=== PATIENT | female | born 1985 | race Caucasian/White ===

== ENCOUNTER 2023-05-09 19:40 | Emergency (ER) | payer BC, SELFPAY ==
[2023-05-09 19:54] VITALS: BP 136/90; PULSE 81; RESP 20; TEMP 36.9; O2SAT 99
--- NOTE | 2023-05-09 20:02 | ED.GENADULT ---
HPI - General Adult General Chief complaint: Shortness of Breath/Dyspnea Stated complaint: SOB Time Seen by Provider: 05/09/23 20:02 Source: patient Mode of arrival: ambulatory Limitations: no limitations History of Present Illness HPI narrative: 37-year-old female presents with complaint of cough, nasal congestion, fatigue, chills, body aches since yesterday. Afebrile. Well-appearing and smiling. Patient states ?maybe I am just coming down with cold ?. Patient was recently seen in the ER. Prescribed atenolol 2 days ago for elevated heart rate. Denies chest pain and palpitations. All systems reviewed and negative except as noted above. Related Data Home Medications Medication Instructions Recorded Confirmed atenolol 50 mg tablet 50 mg 05/09/23 methimazole 10 mg tablet 10 mg 05/09/23 Allergies Allergy/AdvReac Type Severity Reaction Status Date / Time No Known Allergies Allergy Verified 05/09/23 19:51 Review of Systems Review of Systems: CONSTITUTIONAL: Denies fever or sweats. Reports chills and fatigue. EYES: Denies visual changes, redness, or discharge. ENT: Reports rhinorrhea, congestion. Denies sore throat, or otalgia. CARDIOVASCULAR: Denies chest pain, palpitations, or edema. RESPIRATORY: Reports cough. Denies dyspnea. GASTROINTESTINAL: Denies abdominal pain, nausea, vomiting, or diarrhea. GENITOURINARY: Denies dysuria or hematuria. SKIN: Denies rash or itching. MUSCULOSKELETAL: Denies back pain, joint pain, or myalgia. NEUROLOGIC: Denies headache, numbness, or weakness. PSYCHIATRIC: Denies anxiety or depression. All other systems reviewed are negative, except as documented in HPI. PMFSH Comments At time of signature, agree with nursing past medical, surgical, social and family history. There is no relevant family history pertinent to the presenting complaint. Exam Narrative: GENERAL: This is a well-nourished, well-developed patient, in no apparent distress. HEAD: normocephalic, atraumatic. EYES: PERRL. Sclera clear/white. Vision is grossly intact. EARS: External ears normal, auditory canals clear and without drainage, TMs normal without perforation. Hearing grossly intact. NOSE: External nose normal with clear nasal drainage. No significant erythema or swelling to nares. THROAT: Mucous membranes moist, posterior pharynx clear. NECK: Neck supple, non-tender without lymphadenopathy, masses or thyromegaly. CARDIOVASCULAR: Regular rate and rhythm without murmurs, gallops, or rubs. RESPIRATORY: Clear to auscultation. Breath sounds equal bilaterally. No wheezes, rales, or rhonchi. SKIN: warm, Dry, intact with no suspicious lesions or rash, good texture and turgor. NEURO: awake, alert, and oriented to person, place and time. There were no obvious focal neurologic abnormalities. EXTREMITIES: No joint tenderness, effusion, or edema noted. Course Course Level of Care: Express Care Visit Vital Signs Vital signs: Vital Signs Temperature 36.9 C 05/09/23 19:54 Pulse Rate 81 05/09/23 19:54 Respiratory Rate 20 05/09/23 19:54 Blood Pressure 136/90 05/09/23 19:54 Pulse Oximetry 99 05/09/23 19:54 Oxygen Delivery Room Air 05/09/23 19:54 Temperature 36.9 C 05/09/23 19:54 Pulse Rate 81 05/09/23 19:54 Respiratory Rate 20 05/09/23 19:54 Blood Pressure 136/90 05/09/23 19:54 Pulse Oximetry 99 05/09/23 19:54 Oxygen Delivery Room Air 05/09/23 19:54 Reviewed Medical Decision Making MDM Narrative Medical decision making narrative: Patient came in today because she thinks she is getting a ?cold ?. She was recently seen in ER and thinks she may have contracted something from the ER. I recommended to her that is too early for COVID testing and that she take home test at 48 hours. Her exam was normal other than clear nasal drainage. She states she is unsure of what medications she can take [id number] for her symptoms with new prescribed atenolol. Pr
== END 2023-05-09 20:07 | disposition home or self-care (01) ==
PROVIDERS: Emergency Provider Nurse Practitioner Family
DX: J06.9 Acute upper respiratory infection, unspecified (principal); Z79.899 Other long term (current) drug therapy
CPT/HCPCS: 99203; G0463

== ENCOUNTER 2023-05-12 00:06 | Emergency (ER) | payer BC, SELFPAY ==
[2023-05-12 00:09] VITALS: BP 125/69; PULSE 86; RESP 16; TEMP 36.4; O2SAT 100
--- NOTE | 2023-05-12 02:36 | PC.NURSE ---
Patient called out for repeat vitals to triage area, no answer
--- NOTE | 2023-05-12 02:48 | PC.NURSE ---
Patient was again called to triage area for repeat vitals, no answer
== END 2023-05-12 03:20 | disposition left against medical advice (07) ==
LOC: ANHED 03:06
DX: R25.8 Other abnormal involuntary movements (principal)
CPT/HCPCS: 99199

== ENCOUNTER 2023-05-14 11:08 | Emergency (ER) | payer BC, SELFPAY ==
--- NOTE | 2023-05-14 11:37 | PC.NURSE ---
pt seen pacing in lobby and then seen getting into vehicle and leaving.
== END 2023-05-14 11:37 | disposition left against medical advice (07) ==
DX: Z53.21 Procedure and treatment not carried out due to patient leaving prior to being seen by health care provider (principal)
CPT/HCPCS: 99199

== ENCOUNTER 2024-08-26 10:46 | Outpatient (CLI) | payer BC, SELFPAY ==
--- NOTE | ~2024-08-26 | MM_ITS ---
EXAMINATION: MM screening andrea BI w anne HISTORY: Screening TECHNIQUE: Craniocaudal and mediolateral oblique 3-D tomosynthesis images were obtained and synthetic 2-D images were generated. CAD analysis was submitted and interpreted. COMPARISON: No prior studies for comparison. BREAST PARENCHYMAL COMPOSITION: Dense: The breasts are heterogeneously dense, which may obscure small masses FINDINGS: There is no evidence of suspicious mass, calcification, or architectural distortion to sugg est malignancy in either breast. There has been no suspicious interval change. IMPRESSION: 1. No mammographic evidence of malignancy. 2. Recommend routine screening mammography in one year. BI-RADS CATEGORY 1 - NEGATIVE Reviewed, dictated and finalized at location A.
--- OUTSIDE RECORDS SUMMARY | 2024-08-26 10:49 | XMS_ITS | Clinical Summary ---
Author Organization [facility] Address [address] [place] [address] Care Team Providers Care Energy Economist Name Role Phone Unavailable Primary Care Provider Unavailabl e Source Comments [facility],non-owned Affiliates and Associated Physician Practices is amultiple site organization consisting of ambulatory clinics and hospital sitesin [place], [place], [place] and [place]. This disclosure is being madepursuant to the Care Everywhere program and may not contain all information available regarding this patient. Last updated [email or web address] Allergies No known active allergies Medications * Be aware that medications may not be up to date on this document. Alwaysverify current medications with the patient. No known medications Social History Tobacco Use Types Packs/Day Years Used Date Smoking Tobacco: Never Smokeless Tobacco: Never Comments No Sex and Gender Information Value Date Recorded Sex Assigned at Not on file Legal Sex Female 1:25 AM CDT Gender Identity Not on file Sexual Orientation Not on file Last Filed Vital Signs Vital Sign Reading Time Taken Comments Blood Pressure 108/64 04/26/2020 11:32 AM SECRETARY OF POLICE Pulse 70 04/26/2020 11:32 AM SECR[employer]ARY [employer] Temperature 36.6 C (97.8 F) 04/26/2020 11:32 AM SECR[employer]ARY [employer] Respiratory Rate 16 04/26/2020 11:32 AM SECRETARY [employer] Oxygen Saturation 97% 04/26/2020 11:32 AM SECRETARY [employer] Inhaled Oxygen Concentration - - Weight 59 kg (130 lb) 04/26/2020 11:32 AM SECRETARY OF [employer] Height 160 cm (5' 3 ) 04/26/2020 11:32 AM SECR[employer]ARY [employer] Body Mass Index 23.03 04/26/2020 11:32 AM SECRETARY OF [employer] Plan of Treatment Health Maintenance Due Date Last Done Comments LIPID TESTING 1985 MAMMOGRAM 1985 PAP SMEAR 1983 HIV SCREENING 12/23/1998 HEPATITIS C SCREENING 12/19/2001 DTAP/TDAP/TD VACCINES (1 - Tdap) 12/23/2002 HEPATITIS B VACCINE (1 of 3 - 19+ 3-dose series) 12/23/2002 COVID-19 VACCINE (1 - 2023-2 5 season) 2024 DEPRESSION SCREENING 05/10/2024 INFLUENZA VACCINE (Season Ended) 2025 ZOSTER VACCINE (1 of 2) 12/23/2033 HIB VACCINE Aged Out No longer eligi ble based on patient's age to complete this topic HPV VACCINE Aged Out No longer eligi ble based on patient's age to complete this topic MENINGOCOCCAL (Group B) VACC INE SHARED DECISION-MAKING Aged Out No longer eligibl e based on patient's age to complete this topic MENINGOCOCCAL GROUPS A/C/Y/W VACCINE Aged Out No longer eligible b ased on patient's age to complete this topic PNEUMOCOCCAL VACCINE Aged Out No long er eligible based on patient's age to complete this topic Insurance [facility]
--- OUTSIDE RECORDS SUMMARY | 2024-08-26 10:49 | XMS_ITS | Clinical Summary ---
Author Organization [facility] Address [address] [place] [address] Care Team Providers Care Online Marketing Specialist Name Role Phone Adalberto Lund MD Primary Care Provider [phone] Allergies No known active allergies Medications atenolol (TENORMIN) 50 MG tablet Take 1 tablet (50 mg total) by mouth daily. Active methIMAzole (TAPAZOLE) 10 MG tablet Take 1 tablet (10 mg total) by mouth. Active Immunizations Immunization Administration Dates Next Due Influenza (Generic) 03/06/2021 Influenza Adult (Generic) 02/22/2018 Social History Tobacco Use Types Packs/Day Years Used Date Smoking Tobacco: Never Smokeless Tobacco: Never Tobacco Cessation:Counseling Given: Not Answered Comments No Sex and Gender Information Value Date Recorded Sex Assigned at Not on file Legal Sex Female 8:13 PM CDT Gender Identity Not on file Sexual Orientation Not on file Last Filed Vital Signs Vital Sign Reading Time Taken Comments Blood Pressure 128/59 05/21/2023 11:15 PM CAN DRAGGER Pulse 99 05/21/2023 11:15 PM CAN DRAGGER Temperature 36.4 C (97.6 F) 05/21/2023 8:14 PM CAN DRAGGER Respiratory Rate 15 05/21/2023 11:15 PM CAN DRAGGER Oxygen Saturation 99% 05/21/2023 11:15 PM CAN DRAGGER Inhaled Oxygen Concentration - - Weight 56.7 kg (125 lb) 05/21/2023 8:11 PM CAN DRAGGER Height 160 cm (5' 3 ) 05/21/2023 8:11 PM CAN DRAGGER Body Mass Index 22.14 05/21/2023 8:11 PM CAN DRAGGER Plan of Treatment Health Maintenance Due Date Last Done Comments Cervical Cancer Screening Pa p Smear (Age 30 to 64) Every 3 Years 1983 Annual Physical 12/23/1986 Hepatitis C 12/23/2001 DTaP, Tdap and Td Vaccines ( 1 - Tdap) 12/23/2002 Hepatitis B Vaccines (1 of 3 - 19+ 3-dose series) 12/23/2002 Cervical Cancer Screening Pa p with HPV Testing (Age 30 to 64) Every 5 Years 12/23/2013 Cervical Cancer Screening wi th HPV 12/23/2013 Mammogram Screening 2023 COVID-19 Vaccine (2023-2 5 season) 2024 03/13/2021, 08/03/2020, 07/11/2020 HPV Vaccines Aged Out No longer eligi ble based on patient's age to complete this topic Meningococcal B Vaccine Aged Out No l onger eligible based on patient's age to complete this topic Meningococcal Vaccine Aged Out No luisito frandy eligible based on patient's age to complete this topic Pneumococcal Vaccine: Pediatrics (0 to 5 Years) and At-Risk Patients (6 to 49 Years) Aged Out No longer eligible b ased on patient's age to complete this topic RSV Immunizations Under 20 Months Aged Out No longer eligible b ased on patient's age to complete this topic Insurance [facility] Care Teams Online Marketing Specialist Relationship Specialty Start Date End Date Adalberto Lund MD [address] [place] [address] [id number] [place] [address] PCP - General FAMILY PRACTICE 05/12/23
--- OUTSIDE RECORDS SUMMARY | 2024-08-26 10:49 | XMS_ITS | Continuity of Care Document ---
Author Organization [facility]. If a dditional information is needed, contact Health Information Management at [phone] [place] [address] Phone Care Team Providers Care Staff Technologist Name Role Phone Unavailable Unavailable Unavailable Unavailable Unavailable Unavailable Problems Exposure to COVID-19 virus Onset:11-May-2023 Comments:Onset Date: 20230506 Essential (primary) hypertension(I10) Onset:11-May-2023 Comments:Onset Date: [id number] Hyperthyroidism Onset:06-May-2023 Franco Christian MD Palpitations Onset:06-May-2023 Franco Christian MD Comments:Onset Date: [id number] Tachycardia Onset:06-May-2023 Franco Christian MD Comments:Onset Date: [id number] Allergies and Adverse Reactions No Known Allergies(Allergy) Onset: 06-May-2023 Social History Smoking Status Never smoked tobacco Recorded: 06-May-2023
== END 2024-08-26 10:47 | disposition home or self-care (01) ==
PROVIDERS: Visit Provider Obstetrics & Gynecology
DX: Z12.31 Encounter for screening mammogram for malignant neoplasm of breast (principal)
CPT/HCPCS: 77063; 77067